=== PATIENT | female | born 1980 | race Caucasian/White ===

== ENCOUNTER 2018-01-03 17:50 | Outpatient (CLI) | END 2018-01-03 20:59 | disposition home or self-care (01) ==

== ENCOUNTER 2018-03-08 19:49 | Inpatient (IN) | END 2018-03-11 16:56 | disposition home or self-care (01) | DRG 768 ==

== ENCOUNTER 2018-03-17 10:46 | Emergency (ER) | END 2018-03-17 12:47 | disposition home or self-care (01) ==